=== PATIENT | male | born 1930 | race Caucasian/White ===

== ENCOUNTER 2018-04-26 18:06 | Inpatient (IN) | payer MEDICARE, OTHER ==
[~2018-04-26] VITALS: Ht 162.6 cm; Wt 69.1 kg
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
[2018-04-26] MEDS ORDERED: PRINIVIL20 MG PO (18:40)
[2018-04-26] MEDS ORDERED: BAYER CHEWABLE81 MG PO (18:40)
[2018-04-26] MEDS ORDERED: COLACE100 MG PO (18:40)
[2018-04-26] MEDS ORDERED: NORCO 7.5/325 T1 TA1 PO (18:41)
[2018-04-26] MEDS ORDERED: PLAVIX75 MG PO (18:41)
[2018-04-26] MEDS ORDERED: PROSCAR5 MG PO (18:41)
--- NOTE | 2018-04-26 18:53 | NUR ---
THIS NURSE CALLED PT LAURO LEIGH AND SPOKE WITH HER REGARDING CODEWORD. CODEWORD IS CARDINAL. ALL QUESTIONS AND CONCERNS ANSWERED AT THIS TIME. VISTING HOURS AND PHONE CALL TIMES DISCUSSED. NO FURTHER QUESTIONS OR CONCERNS AT THIS TIME.
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
[2018-04-26 23:55] VITALS: BP 156/93; BMI 26.1
[2018-04-27 06:39] LABS: BASOPHILS 0.8 % (0-2); EOSINOPHILS 1.1 % (0-7); HEMATOCRIT 33.2 % (42.0-54.0); HEMOGLOBIN 10.6 g/dL (13.5-17.5); IMMATURE GRANULOCYTES 0.4 % (0-5); LYMPHOCYTES 17.7 % (15-50); MCH 33.3 pg (26.0-34.0); MCHC 31.9 g/dL (31.0-37.0); MCV 104.4 fL (80.0-100.0); MEAN PLATELET VOLUME 12.5 fL (7.4-10.4); MONOCYTES 9.4 % (2-11); NEUTROPHILS 70.6 % (40-80); PLATELET COUNT 151 10x3/uL (130-400); RBC 3.18 10x6/uL (4.20-6.10); RDW 15.6 % (11.5-14.5); WBC 7.2 10x3/uL (4.8-10.8)
[2018-04-27 07:03] LABS: ALBUMIN 2.9 g/dL (3.4-5.0); ALKALINE PHOSPHATASE 109 U/L (46-116); ALT (SGPT) 21 U/L (10-68); BILIRUBIN - TOTAL 0.43 mg/dL (0.2-1.3); CALC OSMOLALITY 289 mosm/kg (275-300); CALCIUM 8.4 mg/dL (8.5-10.1); CARBON DIOXIDE 30.7 mmol/L (21.0-32.0); CHLORIDE - SERUM 108 mmol/L (98-107); CHOL - HDL RATIO 2.4 ratio (2.3-4.9); CHOLESTEROL, TOTAL 146 mg/dL (0-200); CREATININE - SERUM 0.8 mg/dL (0.6-1.3); HDL CHOLESTEROL 61 mg/dL (32-96); LDL CHOLESTEROL 80 mg/dL (0-100); LDL-HDL RATIO 1.3 ratio (1.5-3.5); POTASSIUM - SERUM 3.2 mmol/L (3.5-5.1); PROTEIN - SERUM 6.2 g/dL (6.4-8.2); SODIUM 145 mmol/L (136-145); THYROID STIMULATING HORMONE 2.12 uIU/mL (0.36-3.74); TRIGLYCERIDE 29 mg/dL (30-200); UREA NITROGEN 16 mg/dL (7-18); eGFR NON AFRICAN AMERICAN > 90 mL/min (90-120)
[2018-04-27 07:05] LABS: GLUCOSE 90 mg/dL (74-106)
[2018-04-27 08:00] VITALS: BP 121/62
[2018-04-27 13:15] VITALS: BMI 26.1
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
[2018-04-27 19:45] VITALS: BP 139/82
--- NOTE | 2018-04-27 22:39 | NUR ---
RECEIVED IN DAYROOM. SITTING IN A RECLINING CHAIR AT TABLE. STAFF AND PEERS AT HIS SIDE. CALM AND COOPERATIVE WITH CARE AND ASSESSMENT. NO SIGNS OF AGGRESSION. RESTING QUIETLY IN BED AT THIS TIME. CONTINUE PLAN OF CARE
[2018-04-28 07:30] LABS: RAPID PLASMA REAGIN Non Reactive (Non Reactive)
[2018-04-28 08:20] LABS: FOLATE (FOLIC ACID) - SERUM 9.6 ng/mL (>3.0); VITAMIN D 25 HYDROXY 15.9 ng/mL (30.0-100.0)
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
--- NOTE | 2018-04-28 10:00 | NUR ---
RECEIVED PATIENT IN DINING ROOM FOR B'FAST, ALERT, CALM, NO AGGRESSION NOTED AT THIS TIME. MEDS ADMIN PER ORDERS WITH COMPLETE MED COMPLIANCE NOTED. COOPERATIVE WITH GROUP AND STAFF REQUESTS. CONT POC INCLUDING MEDS AND GROUP THERAPY, MONITORING FOR AGGRESSION.
[2018-04-28 10:21] VITALS: BP 143/82
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
[2018-04-28 19:41] VITALS: BP 145/67
--- NOTE | 2018-04-28 21:42 | NUR ---
RECEIVED IN BEDROOM. RESTING IN BED WITH EYES CLOSED. RESPONDS TO VOICE. CALM AND COOPERATIVE WITH CARE AND ASSESSMENT. NO SIGNS OF AGGRESSION. REDIRECT AND REORIENT NEEDED, RESTING IN BED WITH EYES CLOSED AT THIS TIME. CONTINUE PLAN OF CARE
--- NOTE | 2018-04-29 10:28 | NUR ---
B)The patient is very confused he has no insight into where he is. He asks the same question over and over, he forgets one minite to the next. He has not shown any aggression this am, but he has asked about his shoes multiple times. He self propels in a w/c. I) Provide prescribed meds. R) The patient is compliant with meds today. He is talking a lot with another male patient and he is content. P) Continue POC.
--- NOTE | 2018-04-29 12:29 | PN ---
PATIENT:ELVIRA LEIGH MEDICAL RECORD: [id number] LOCATION:[facility] ADMISSION DATE: 04/26/18 PROGRESS NOTE DATE OF SERVICE: 04/28/2018 SUBJECTIVE: The patient's case was discussed with staff. He has no new complaint. OBJECTIVE: The patient is in good behavioral control with limited insight about his condition. He tolerates his medicines well. ASSESSMENT: No change in diagnoses. PLAN: Current medicines and therapies have been reviewed and will be maintained. Long-term prognosis is guarded. TRANSINT:[id number] Voice Confirmation ID: [id number] DOCUMENT ID: [id number] BERTHA CADENA MD at 1229 CC: [id number] DICTATION DATE: 04/28/18927 TECHNICAL APPLICATIONS SCIENTIST: 04/28/18 1142 ADM IN [place] [id number] [place] [address]
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
[2018-04-29 17:02] VITALS: BP 140/68
--- NOTE | 2018-04-29 17:57 | NUR ---
GOOD RESPONSE TO ATIVAN GIVEN EARLIER.
[2018-04-29 20:00] VITALS: BP 131/74
--- NOTE | 2018-04-30 01:54 | NUR ---
B) Patient is alert and oriented to self, calm and cooperative this shift, I) Administered scheduled mediations as ordered, monitored for safety R) Mediation compliant, sleeping now quietly in his bed, P) Continue plan of care.
[2018-04-30 04:42] LABS: APPEARANCE CLEAR (CLEAR); BILIRUBIN NEGATIVE (NEGATIVE); COLOR YELLOW (YELLOW); GLUCOSE NEGATIVE (NEGATIVE); KETONE NEGATIVE (NEGATIVE); NITRITE NEGATIVE (NEGATIVE); PROTEIN NEGATIVE (NEGATIVE); UROBILINOGEN NORMAL (NORMAL)
[2018-04-30 09:47] VITALS: BP 109/49
--- NOTE | 2018-04-30 12:55 | PN ---
PATIENT:ELVIRA LEIGH MEDICAL RECORD: [id number] LOCATION:[facility] ADMISSION DATE: 04/26/18 PROGRESS NOTE DATE OF SERVICE: 04/29/2018 SUBJECTIVE: The patient's case was discussed with staff. He has no new complaint. OBJECTIVE: The patient is tolerating his medicines reasonably well. He is receiving a dose of Namenda to assist with his thought disorganization. He has not been aggressive. ASSESSMENT: No change in diagnoses. PLAN: Current medicines and therapies have been reviewed and will be maintained. Long-term prognosis is guarded. TRANSINT:[id number] Voice Confirmation ID: [id number] DOCUMENT ID: [id number] BERTHA CADENA MD at 1255 CC: [id number] DICTATION DATE: 04/29/18 1254 MANAGEMENT SUPERVISOR: 04/29/18 1410 ADM IN [place] [id number] [place] [id number]
[2018-04-30 16:23] VITALS: Ht 162.6 cm; Wt 69.1 kg
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
--- NOTE | 2018-04-30 18:52 | NUR ---
The patient denies any pain in his knee now, he said "I forgot all about it."
--- NOTE | 2018-05-01 02:47 | NUR ---
B) Patient is alert and oriented to self, calm and cooperative this shift, confused, middle of the night awakening, I) Administered scheduled medications as ordered, PRN Gilead at 01:10 for back pain 8 of 10, R) Medication compliant, good responce to Gilead, no further complains of pain, resting in the hallway due to restlessness P) Continue plan of care.
--- NOTE | 2018-05-01 07:58 | NUR ---
B) The patient is awake this am he knows his name and he knows he is in the hospital. He says his knee hurts and he told Dr. Cooley he is hurting this am. He is sleepy at this time, he will talk a little then he will fall asleep. He is in a gerichair. I) Provide prescribed meds. R) The patient is compliant with meds and unit milieu. P) Continue POC.
--- NOTE | 2018-05-01 08:46 | PN ---
PATIENT:ELVIRA LEIGH MEDICAL RECORD: [id number] LOCATION:[facility] ADMISSION DATE: 04/26/18 PROGRESS NOTE DATE OF SERVICE: 04/30/2018 SUBJECTIVE: The patient's case was discussed with staff. He has no new complaint. OBJECTIVE: The patient is in good behavioral control with limited insight about his condition. He does tolerate his medicines well. He is difficult to redirect, but has not been openly aggressive or agitated today. TRANSINT:[id number] Voice Confirmation ID: [id number] DOCUMENT ID: [id number] BERTHA CADENA MD at 0846 CC: [id number] DICTATION DATE: 04/30/18 1327 CERTIFIED CODER: 04/30/18 1724 ADM IN [place] [id number] [place] [id number]
[2018-05-01 09:51] VITALS: BP 111/66
[2018-05-01 10:10] VITALS: BP 111/66
--- NOTE | 2018-05-01 15:56 | NUR ---
FAMILY HERE TO VISIT PATIENT.
[2018-05-01 19:00] VITALS: BP 150/76
--- NOTE | 2018-05-02 04:03 | NUR ---
B) patient is alert and oriented to self, very confused and yelling out for Gertrudis, I) Administered scheduled medications as ordered, redirected as needed, R) Mediation compliant, sleeping now in his bed, P) Continue plan of care.
[2018-05-02 07:00] VITALS: BP 135/70
--- NOTE | 2018-05-02 08:00 | NUR ---
B) pt is alert and oriented to self. pt is very confused. pt yells out at times. pt is calm and cooperative with assessment. I) provide prescribed meds R) med compliant P) cpoc
--- NOTE | 2018-05-02 11:30 | PN ---
PATIENT:ELVIRA LEIGH MEDICAL RECORD: [id number] LOCATION:[facility] ADMISSION DATE: 04/26/18 PROGRESS NOTE DATE OF SERVICE: 05/01/2018 SUBJECTIVE: The patient's case was discussed with staff. He has no new complaint. OBJECTIVE: The patient denies intent to harm himself or others. He eats reasonably well, but is not sleeping well at all. ASSESSMENT: No change in diagnoses. PLAN: The patient will be maintained on current medications, which have been reviewed. I am going to give him a low dose of trazodone to assist with sleep consolidation. He will be monitored for clinical changes associated with its use. His long-term prognosis is guarded. TRANSINT:[id number] Voice Confirmation ID: [id number] DOCUMENT ID: [id number] BERTHA CADENA MD at 1130 CC: [id number] DICTATION DATE: 05/01/18 1011 RETAIL LOSS PREVENTION INVESTIGATOR: 05/01/18 1211 ADM IN [place] [id number] [place] [id number]
[2018-05-02 20:12] VITALS: BP 120/76
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
[2018-05-03 07:00] VITALS: BP 124/67
--- NOTE | 2018-05-03 07:30 | NUR ---
B) PT IS ALERT AND ORIENTED TO SELF. CALM AND COOPERATIVE WITH ASSESSMENT. REALITY ORIENTED NEEDED. I) PROVIDE PRESCRIBED MEDS R) MED COMPLIANT P) CPOC
[2018-05-03 08:52] LABS: BASOPHILS 0.8 % (0-2); EOSINOPHILS 1.7 % (0-7); HEMATOCRIT 36.6 % (42.0-54.0); HEMOGLOBIN 11.6 g/dL (13.5-17.5); IMMATURE GRANULOCYTES 0.6 % (0-5); LYMPHOCYTES 19.3 % (15-50); MCH 32.9 pg (26.0-34.0); MCHC 31.7 g/dL (31.0-37.0); MCV 103.7 fL (80.0-100.0); MEAN PLATELET VOLUME 12.6 fL (7.4-10.4); MONOCYTES 12.5 % (2-11); NEUTROPHILS 65.1 % (40-80); PLATELET COUNT 143 10x3/uL (130-400); RBC 3.53 10x6/uL (4.20-6.10); RDW 15.6 % (11.5-14.5); WBC 6.6 10x3/uL (4.8-10.8)
[2018-05-03 09:10] LABS: ALBUMIN 2.9 g/dL (3.4-5.0); ALKALINE PHOSPHATASE 106 U/L (46-116); ALT (SGPT) 11 U/L (10-68); BILIRUBIN - TOTAL 0.58 mg/dL (0.2-1.3); CALC OSMOLALITY 284 mosm/kg (275-300); CALCIUM 8.6 mg/dL (8.5-10.1); CARBON DIOXIDE 24.8 mmol/L (21.0-32.0); CHLORIDE - SERUM 107 mmol/L (98-107); CREATININE - SERUM 0.8 mg/dL (0.6-1.3); GLUCOSE 100 mg/dL (74-106); POTASSIUM - SERUM 3.8 mmol/L (3.5-5.1); SODIUM 142 mmol/L (136-145); UREA NITROGEN 18 mg/dL (7-18); eGFR NON AFRICAN AMERICAN > 90 mL/min (90-120)
--- NOTE | 2018-05-03 09:41 | PN ---
PATIENT:ELVIRA LEIGH MEDICAL RECORD: [id number] LOCATION:[facility] ADMISSION DATE: 04/26/18 PROGRESS NOTE DATE OF SERVICE: 05/02/2018 SUBJECTIVE: The patient's case was discussed with staff. He has no new complaint. OBJECTIVE: The patient denies intent to harm himself or others. He has been fairly agitated. ASSESSMENT: No change in diagnoses. PLAN: The patient is going to be given Trilafon at a dose of 2 mg at bedtime to assist with thought disorganization. He will be monitored for clinical changes associated with its use. TRANSINT:[id number] Voice Confirmation ID: [id number] DOCUMENT ID: [id number] BERTHA CADENA MD at 0941 CC: [id number] DICTATION DATE: 05/02/18 1142 REAL ESTATE VALUER: 05/02/18 1541 ADM IN [place] [id number] [place] [id number]
--- NOTE | 2018-05-03 13:10 | NUR ---
Nutrition follow-up: Diet: Regular PO intake 100% of meals Labs reviewed +BM RDN following.
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
--- NOTE | 2018-05-03 14:05 | NUR ---
PRN MED EFFECTIVE. PT RESTING IN RECLING CHAIR IN DAYROOM WITH PEERS AND NURSES. WILL CONTINUE TO MONITOR Q 15 MINUTES FOR SAFETY.
--- NOTE | 2018-05-03 21:22 | NUR ---
PATIENT IS CONFUSED TO TIME, PLACE AND SITUATION, COMPLIANT WITH MEDS, NO ADVERSE REACTION NTOED. WILL FOLLOW POC
[2018-05-03 21:59] VITALS: BP 120/60
[2018-05-04 08:00] VITALS: BP 137/88
--- NOTE | 2018-05-04 09:43 | PN ---
PATIENT:ELVIRA LEIGH MEDICAL RECORD: [id number] LOCATION:[facility] ADMISSION DATE: 04/26/18 PROGRESS NOTE DATE OF SERVICE: 05/03/2018 SUBJECTIVE: The patient's case was discussed with staff. He has no new complaint. OBJECTIVE: The patient denies intent to harm himself or others. He tolerates his medicines well. ASSESSMENT: No change in diagnoses. PLAN: Brief supportive and educational interventions were made. Long-term prognosis is guarded. TRANSINT:[id number] Voice Confirmation ID: [id number] DOCUMENT ID: [id number] BERTHA CADENA MD at 0943 CC: [id number] DICTATION DATE: 05/03/18 1036 WAIST CUTTER: 05/03/18 1104 ADM IN [place] [id number] [place] [id number]
--- NOTE | 2018-05-04 10:00 | NUR ---
RECEIVED PATIENT IN DINING ROOM FOR B'FAST, ALERT, CALM, COOPERATIVE. NO AGGRESSION NOTED AT THIS TIME. MEDS ADMIN PER ORDERS WITH COMPLETE MED COMPLIANCE NOTED. NO S/S ADVERSE REACTION TO MEDS. COOPERATIVE WITH STAFF AND GROUP THERAPY. CONT POC DIRECTED.
[2018-05-04 21:00] VITALS: BP 140/82
--- NOTE | 2018-05-04 22:56 | NUR ---
B) patient is alert and oriented to self, yelling out ant and demanding at times, I) Administered scheduled medications as ordered, R) Mediation compliant, resting in the hallway for safety P) Continue plan of care.
[2018-05-05 08:00] VITALS: BP 153/77
--- NOTE | 2018-05-05 10:37 | NUR ---
RECEIVED PATIENT IN DINING ROOM FOR B'FAST, ALERT, CALM, COOPERATIVE. NO AGGRESSION NOTED. HOWEVER, WILL OCCASIONALLY CURSE LOUDLY FOR UNKOWN REASONS. MEDS ADMIN PER ORDERS WITH COMPLETE MED COMPLIANCE NOTED. TAKES MEDS WHOLE. COOPERATIVE WITH GROUP AND STAFF REQUESTS. CONT POC INCLUDING MEDS AND GROUP THERAPY DIRECTED.
--- NOTE | 2018-05-05 10:40 | NUR ---
ELECTRONIC PREPRESS OPERATOR HERE FOR TOENAIL MAINTENANCE. PT COOPERATIVE AND TIMMY PROCEDURE WELL.
--- NOTE | 2018-05-05 10:53 | NUR ---
LIV SPOKE TO PT'S , LAURO, TO DISCUSS DISCHARGE PLANNING NEEDS. LIV STATED SHE FAXED LETTERS TO PT'S CHART COMPUTER. LAURO VOICED UNDERSTANDING
--- NOTE | 2018-05-05 15:07 | PN ---
PATIENT:ELVIRA LEIGH MEDICAL RECORD: [id number] LOCATION:[facility] ADMISSION DATE: 04/26/18 PROGRESS NOTE DATE OF SERVICE: 05/04/2018 SUBJECTIVE: The patient's case was discussed with staff. He has no new complaint. OBJECTIVE: The patient is irritable, but he has not been openly aggressive today. He did require Haldol and Ativan yesterday afternoon. He is not sedated from that incident. He will be maintained on current medicines. TRANSINT:[id number] Voice Confirmation ID: [id number] DOCUMENT ID: [id number] BERTHA CADENA MD at 1507 CC: [id number] DICTATION DATE: 05/04/18 1003 PRODUCTION TECHNOLOGIST: 05/04/18 1018 ADM IN [id number] [place] [address]
[2018-05-05 20:23] VITALS: BP 129/69
--- NOTE | 2018-05-06 02:51 | NUR ---
B) Patient is alert and oriented to self, confused and unaware of surroundings at times, I) Administered scheduled medications as ordered, monitored for safety R) Medication compliant, follow instructions, P) Continue plan of care.
--- NOTE | 2018-05-06 10:00 | NUR ---
RECEIVED PATIENT IN DINING ROOM FOR B'FAST, ALERT, CALM, CONFUSED, FEEDS SELF AFTER SETUP. CALM MOST OF THE TIME WITH AN OCCASIONAL OUTBURST OF PROFANITY. MEDS ADMIN PER ORDERS WITH COMPLETE MED COMPLIANCE NOTED. NO S/S ADVERSE REACTION TO MEDS. COOPERATIVE WITH GROUP AND STAFF REQUESTS. CONT POC INCLUDING MEDS AND GROUP THERAPY DIRECTED.
[2018-05-06 10:19] VITALS: BP 148/75
--- NOTE | 2018-05-06 14:21 | PN ---
PATIENT:ELVIRA LEIGH MEDICAL RECORD: [id number] LOCATION:[facility] ADMISSION DATE: 04/26/18 PROGRESS NOTE DATE OF SERVICE: 05/05/2018 SUBJECTIVE: The patient's case was discussed with staff. He has no new complaint. OBJECTIVE: The patient is severely impaired cognitively, but has not been aggressive today. He has very limited insight about his situation. ASSESSMENT: No change in diagnoses. PLAN: Supportive and educational interventions were made. Long-term prognosis is guarded. TRANSINT:[id number] Voice Confirmation ID: [id number] DOCUMENT ID: [id number] BERTHA CADENA MD at 1421 CC: [id number] DICTATION DATE: 05/05/18 1542 ASSEMBLER CARDS AND ANNOUNCEMENTS: 05/05/18 1658 ADM IN [place] [address] [place] [address]
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
--- NOTE | 2018-05-06 15:23 | NUR ---
RESTING QUIETLY IN W/C, EYES CLOSED. NO S/S DISTRESS.
--- NOTE | 2018-05-06 15:38 | NUR ---
FAMILY HERE TO VISIT PATIENT.
--- NOTE | 2018-05-06 16:14 | NUR ---
LIV MET WITH PT'S , LAURO, TO DISCUSS DISCHARGE AND DISEASE PROGRESSION. LIV GAVE MD LETTERS TO HAVE FOR HER GUARDIANSHIP PURPOSES. SHE STATED SHE IS NOW HIS LEGAL GUARDIAN. LAURO VOICED UNDERSTANDING OF CONVERSATION.
[2018-05-06 20:05] VITALS: BP 135/72
--- NOTE | 2018-05-06 21:06 | NUR ---
RECEIVED IN DAYROOM. SITTING IN A CHAIR WITH PEERS BY HIS SIDE. CALM AND COOPERATIVE WITH CARE AND ASSESSMENT. NO SIGNS OF AGGRESSION. REDIRECT AND REORIENT NEEDED. CONTINUES TO SIT QUIETLY IN CHAIR. CONTINUE PLAN OF CARE
[2018-05-07 08:46] VITALS: BP 148/49
--- NOTE | 2018-05-07 10:55 | NUR ---
B) The patient is sleepy this am, he has asked to go to the bathroom and he has been taken twice and has not voided. He has poor insight into his situation, he is confused and he yells out for Gertrudis and Parvin. I) Provide prescribed meds. R) The patient is compliant with meds. P) Continue POC.
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
[2018-05-07 19:46] VITALS: BP 145/67
--- NOTE | 2018-05-08 00:30 | NUR ---
RECEIVED IN HALLWAY OUTSIDE OF NURSES STATION. SOCIALIZING WITH PEERS AND STAFF. CALM AND COOPERATIVE WITH CARE AND ASSESSMENT. NO SIGNS OF AGGRESSION. REDRIECT AND REORIENT NEEDED. RESTING IN BED WITH EYES CLOSED AT THIS TIME. CONTINUE PLAN OF CARE.
[2018-05-08 08:00] VITALS: BP 121/77
--- NOTE | 2018-05-08 13:46 | PN ---
PATIENT:ELVIRA LEIGH MEDICAL RECORD: [id number] LOCATION:[facility]qbal[facility] ADMISSION DATE: 04/26/18 PROGRESS NOTE DATE OF SERVICE: 05/07/2018 SUBJECTIVE: The patient's case was discussed with staff. He has no new complaint. OBJECTIVE: The patient is taking a higher dose of Trilafon for its antipsychotic effect. He did receive a p.r.n. dose of medication yesterday because of some agitation and aggression. He was fairly sedated through the morning, but that was probably the lingering side effect of the medication. ASSESSMENT: No change in diagnoses. PLAN: Current medicines have been reviewed and will be maintained. I am going to increase the dose of the trazodone to assist with sleep consolidation. TRANSINT:[id number] Voice Confirmation ID: [id number] DOCUMENT ID: [id number] BERTHA CADENA MD at 1346 CC: [id number] DICTATION DATE: 05/07/18 1552 ACID PATROLLER: 05/07/18 2342 ADM IN [place] [id number] [place] [address]
--- NOTE | 2018-05-08 15:21 | NUR ---
B) The patient is confused, he is wheeling around, saying he needs to leave because he wants to go build a house with the gloria. He has poor insight into his situation. He is in a w/c and can self propel. He has not shown any aggression today. His legs are edematous and he will not elevate his feet. He also keeps asking about his shoes, try to explain that his feet are too edematous for shoes. I) Provide prescribed meds. R) The patient is compliant with meds. He did tell me this am that he did not want to take all of those meds. He did take them, a couple at a time. P) Continue POC.
[2018-05-08 21:16] VITALS: BP 138/70
--- NOTE | 2018-05-09 00:45 | NUR ---
RECEIVED IN HALLWAY OUTSIDE OF NURSES STATION IN [facility]. PATIENT CONTINUOUSLY ATTEMPTING TO GET UP WITHOUT ASSISTANCE. ALARM SOUNDING. ANXIOUS. YELLING OUT IN HALLWAY. WAKING OTHER PATIENTS UP. RESISTIVE TO REDIRECTION. REDIRECT AND REORIENT. PRN ATIVAN 0.5 MG GIVEN FOR ANXIETY. PATIENT RESTING WITH EYES CLOSED AT THIS TIME. CONTINUE PLAN OF CARE.
[2018-05-09 08:00] VITALS: BP 148/85
--- NOTE | 2018-05-09 11:13 | PN ---
PATIENT:ELVIRA LEIGH MEDICAL RECORD: [id number] LOCATION:[facility] ADMISSION DATE: 04/26/18 PROGRESS NOTE DATE OF SERVICE: 05/08/2018 SUBJECTIVE: The patient's case was discussed with staff. He has no new complaint. OBJECTIVE: The patient denies intent to harm himself or others. He tolerates his medicines well. Eye contact is poor. ASSESSMENT: No change in diagnoses. PLAN: Current medicines and therapies have been reviewed and will be maintained. Long-term prognosis is guarded. TRANSINT:[id number] Voice Confirmation ID: [id number] DOCUMENT ID: [id number] BERTHA CADENA MD at 1113 CC: [id number] DICTATION DATE: 05/08/18 1510 IN SCHOOL SUSPENSION COORDINATOR: 05/08/18 2141 ADM IN [facility] [address] [place] [address]
--- NOTE | 2018-05-09 11:14 | NUR ---
B) PT IS CONFUSED WITH POOR INSIGHT INTO HIS SITUATION. REALITY ORIENTED NEEDED. I) PROVIDED PRESCRIBED MEDS R) NONCOMPLIANT WITH MEDS P) CPOC
--- NOTE | 2018-05-09 20:38 | NUR ---
RECEIVED IN BEDROOM. RESTING IN BED WITH EYES CLOSED. CALM AND COOPERATIVE WITH CARE AND ASSESSMENT. NO SIGNS OF AGGRESSION. REDIRECT AND REORIENT NEEDED. CONTINUE TO REST QUIETLY IN BED. CONTINUE PLAN OF CARE
[2018-05-09 22:06] VITALS: BP 120/56
--- NOTE | 2018-05-10 10:30 | NUR ---
RECEIVED PATIENT IN DINING ROOM FOR B'FAST, ALERT, CALM, QUIET. MEDS ADMIN PER ORDERS WITH COMPLETE MED COMPLIANCE NOTED. NO S/S ADVERSE REACITON. COOPERATIVE WITH GROUP AND STAFF. CONT POC INCLUDING MEDS AND GROUP THERAPY.
[2018-05-10 10:36] VITALS: BP 137/78
--- NOTE | 2018-05-10 13:23 | PN ---
PATIENT:ELVIRA LEIGH MEDICAL RECORD: [id number] LOCATION:[facility] ADMISSION DATE: 04/26/18 PROGRESS NOTE DATE OF SERVICE: 05/09/2018 SUBJECTIVE: The patient's case was discussed with staff. He has no new complaint. OBJECTIVE: The patient is in good behavioral control with poor insight about his condition. He has not been combative today; but earlier, he was noncompliant with medications and did curse the staff. TRANSINT:[id number] Voice Confirmation ID: [id number] DOCUMENT ID: [id number] BERTHA CADENA MD at 1323 CC: [id number] DICTATION DATE: 05/09/18 1122 COMMUNITY ORGANIZER: 05/09/18 1533 ADM IN [place] [id number] [place] [address]
--- NOTE | 2018-05-10 15:06 | NUR ---
Nutrition Follow Up: Diet: Regular PO Intake: 69% meal avg BM: 05/09/18 Meds and labs reviewed Rec continue current diet. RD following.
[2018-05-10 20:40] VITALS: BP 136/76
--- NOTE | 2018-05-11 05:12 | NUR ---
B) patient is alert and oriented to self, restless at times, impatient at times, I) Administered scheduled medications as ordered, monitored for safety R) Mediation compliant, sleeping now quietly in his bed, P) Continue plan of care.
--- NOTE | 2018-05-11 09:32 | NUR ---
RECEIVED PATIENT IN DINING ROOM FOR B'FAST, ALERT, CALM, COOPERATIVE, CONFUSED. MEDS ADMIN PER ORDERS WITH COMPLETE MED COMPLIANCE NOTED. COOPERATIVE WITH GROUP AND STAFF REQUESTS. CONT POC INCLUDING MEDS AND GROUP THERAPY DIRECTED.
--- NOTE | 2018-05-11 10:58 | PN ---
PATIENT:ELVIRA LEIGH MEDICAL RECORD: [id number] LOCATION:[facility] ADMISSION DATE: 04/26/18 PROGRESS NOTE DATE OF SERVICE: 05/10/2018 SUBJECTIVE: The patient's case was discussed with staff. He has no new complaint. OBJECTIVE: The patient is in good behavioral control with limited insight about his condition. He does tolerate his medicines well. ASSESSMENT: No change in diagnoses. PLAN: Supportive and educational interventions were made. Long-term prognosis is guarded. TRANSINT:[id number] Voice Confirmation ID: [id number] DOCUMENT ID: [id number] BERTHA CADENA MD at 1058 CC: [id number] DICTATION DATE: 05/10/18 1417 RESEARCH INSTRUCTOR: 05/10/18 2208 ADM IN [place] [id number] [place] [id number]
[2018-05-11 11:27] VITALS: BP 149/71
[2018-05-11 19:48] VITALS: BP 125/63
--- NOTE | 2018-05-12 02:20 | NUR ---
RECEIVED IN PATIENT ROOM. RESTING IN BED WITH EYS OPEN. CALM AND COOPERATIVE WITH CARE AND ASSESSMENT. NO SIGNS OF AGGRESSION. REDIRECT AND REORIENT NEEDED. RESTING IN BED WITH EYES CLOSED AT THIS TIME. CONTINUE PLAN OF CARE.
[2018-05-12 08:00] VITALS: BP 126/70
--- NOTE | 2018-05-12 08:00 | NUR ---
B) RECIVED IN HALLWAY IN RECLINER. ALERT TO SELF ONLY. CALM AND COOPERATIVE WITH CARE AND ASSESSMENT. I) ADMINISTERED MEDICATIONS ORDERED. FALL PRECAUTIONS IN PLACE. R) COMPLIANT WITH TAKING MEDICATIONS. REDIRECT NEEDED. P) CONTINUE PLAN OF CARE.
--- NOTE | 2018-05-12 17:30 | PN ---
PATIENT:ELVIRA LEIGH MEDICAL RECORD: [id number] LOCATION:[facility] ADMISSION DATE: 04/26/18 PROGRESS NOTE DATE OF SERVICE: 05/11/2018 SUBJECTIVE: The patient's case was discussed with staff. He has no new complaint. OBJECTIVE: The patient is in good behavioral control. He is severely impaired cognitively. He is not eating adequately. I do plan to give him a low dose of Megace to assist with appetite stimulation. TRANSINT:[id number] Voice Confirmation ID: [id number] DOCUMENT ID: [id number] BERTHA CADENA MD at 1730 CC: [id number] DICTATION DATE: 05/11/18 1242 TELECOMMUNICATIONS FIELD ENGINEER: 05/11/18 2209 ADM IN [place] [address] [place] [address]
[2018-05-12 21:09] VITALS: BP 127/66
--- NOTE | 2018-05-12 21:14 | NUR ---
RECEIVED IN DAYROOM. SITTING IN ACHAIR WITH PEERS AT HIS SIDE. CALM AND COOPERATIVE WITH CARE AND ASSESSMENT. NO SIGNS OF AGGRESSION. REDIRECT AND REORIENT NEEDED. CONTINUES TO SIT QUIETLY. CONTINUE PLAN OF CARE
--- NOTE | 2018-05-12 23:54 | NUR ---
GETTING OUT OF BED. STATES "I WON'T SLEEP IN THIS BED". MOVED TO HALLWAY INTO RECLINER AFTER AttEMPTS AT REDIRECTION FAILED. RESTING EYES CLOSED AT THIS TIME.
[2018-05-13 09:04] VITALS: BP 119/68
--- NOTE | 2018-05-13 10:20 | NUR ---
B) RECEIVED IN HALLWAY WITH PEERS,SITTING IN A RECLINER. ALERT AND ORIENTED TO SELF ONLY. NO AGGRESSION NOTED. I) ADMINISTERED SCHEDULED MEDICATIONS. FALL PRECAUTIONS IN PLACE. R) COMPLIANT WITH MEDICATIONS AND UNIT MILIEU. REDIRECT AND REORIENT NEEDED. P) CONTINUE PLAN OF CARE.
--- NOTE | 2018-05-13 15:00 | PN ---
PATIENT:ELVIRA LEIGH MEDICAL RECORD: [id number] LOCATION:[facility] ADMISSION DATE: 04/26/18 PROGRESS NOTE DATE OF SERVICE: 05/12/2018 SUBJECTIVE: The patient's case was discussed with staff. He has no new complaint. OBJECTIVE: The patient has been in good behavioral control today. He has not been aggressive. He actually slept well last night and I am encouraged by the improvement that he has shown in the past couple of days. I have reviewed his current medicines and I am going to maintain them today, but want to continue to watch him for aggressive behaviors and also to ensure that the medications he is receiving are not going to cause some excessive sedation. ASSESSMENT: No change in diagnoses. PLAN: Supportive and educational interventions were made. Long-term prognosis is guarded. TRANSINT:[id number] Voice Confirmation ID: [id number] DOCUMENT ID: [id number] BERTHA CADENA MD at 1500 CC: [id number] DICTATION DATE: 05/12/18 175 AUTOMATIC NAILING MACHINE OPERATOR: 05/12/18 1851 ADM IN [facility] [address] [place] [id number]
[2018-05-13 19:34] VITALS: BP 140/65
--- NOTE | 2018-05-14 01:00 | NUR ---
RECEIVED IN DAYROOM. SITTING IN RECLINER WITH PEERS AT HIS SIDE. CALM AND COOPERATIVE WITH CARE AND ASSESSMENT. NO SIGNS OF AGGRESSION. REDIRECT AND REORIENT NEEDED. RESTING IN BED WITH EYES CLOSED AT THIS TIME. CONTINUE PLAN OF CARE.
[2018-05-14 08:14] VITALS: BP 146/77
--- NOTE | 2018-05-14 13:29 | NUR ---
B) The patient is awake, he has poor insight into his situation. He is pleasant he has not shown any aggression with staff or peers. He has 2+ edema in his right foot and ankle. I) Provide prescribed meds. R) Patient is compliant with meds and unit. P) Continue POC.
[2018-05-14 20:00] VITALS: BP 162/87
--- NOTE | 2018-05-14 23:07 | NUR ---
PATIENT IS IN GERICHAIR, FLAT AFFECT. NO ADVERSE REACTIONS TO MEDS. COMPLIANT WITH MEDS. IMPAIRED MEMORY. WILL CONTINUE TO FOLLOW POC
--- NOTE | 2018-05-15 08:00 | NUR ---
On am assesment it is noted that the patient's left hand particularly the thumb is swollen and the patient c/o pain. When this nurse touches the thumb area the marybeth and parveen, Did ask Dr. Cooley for an Xray. An xray is ordered.
--- NOTE | 2018-05-15 08:30 | NUR ---
Xray obtained of the left hand.
--- NOTE | 2018-05-15 09:10 | NUR ---
B) The patient is confused he has poor insight into his situation. He knows his name. He does not know where he is and he does not know the time. He is calm and he has not shown any aggression today. He does try to get up and walk often. I) Provide prescribed meds. R) The patient is compliant with meds. P) Continue POC.
--- NOTE | 2018-05-15 10:19 | NUR ---
The x-ray report shows no fx of the left hand.
--- NOTE | 2018-05-15 10:45 | NUR ---
The patient fell, Matt ALLEN had taken him to the bathroom and he heard another patient's alarm and the patient stood up alone. He fell. Matt did an assessment with no injuries noted.
--- NOTE | 2018-05-15 11:00 | NUR ---
Contacted Dr. Cooley and left messages for the patient's spouse to let her know the patient fell, no injuries, also let her know about the patient's swollen left hand and xray that we did prior to the fall this am.
--- NOTE | 2018-05-15 12:34 | PN ---
PATIENT:ELVIRA LEIGH MEDICAL RECORD: [id number] LOCATION:[facility] ADMISSION DATE: 04/26/18 PROGRESS NOTE DATE OF SERVICE: 05/13/2018 SUBJECTIVE: The patient's case was discussed with staff. He has no new complaints. OBJECTIVE: The patient is in good behavioral control with limited insight about his condition. He tolerates his medicines well. ASSESSMENT: No change in diagnoses. PLAN: The patient will be maintained on current medications. He is eating better now that he has been given the Megace. The trazodone does not seem to have helped with his sleep consolidation, but I am going to give that another day before I consider changing it. I am, however, going to increase the dose of the Namenda to 5 mg twice daily. He has tolerated the initial dose well and I think it is reasonable to increase it at this point. TRANSINT:[id number] Voice Confirmation ID: [id number] DOCUMENT ID: [id number] BERTHA CADENA MD at 1234 CC: [id number] DICTATION DATE: 05/13/18 1534 DIE EQUIPMENT OPERATOR: 05/13/18 2207 ADM IN [facility] [address] [place] [address]
--- NOTE | 2018-05-15 12:34 | PN ---
PATIENT:ELVIRA LEIGH MEDICAL RECORD: [id number] LOCATION:[facility] ADMISSION DATE: 04/26/18 PROGRESS NOTE DATE OF SERVICE: 05/14/2018 SUBJECTIVE: The patient's case was discussed with staff. He has no new complaint. OBJECTIVE: The patient denies intent to harm himself or others. He is tolerating his medicines well. He is very poorly oriented. ASSESSMENT: No change in diagnoses. PLAN: Supportive and educational interventions were made. Long-term prognosis is guarded. TRANSINT:[id number] Voice Confirmation ID: [id number] DOCUMENT ID: [id number] BERTHA CADENA MD at 1234 CC: [id number] DICTATION DATE: 05/14/18 1506 AIRCRAFT LAUNCH AND RECOVERY TECHNICIAN: 05/14/18 2134 ADM IN [place] [id number] [place] [address]
[2018-05-15 21:10] VITALS: BP 136/74
--- NOTE | 2018-05-16 00:04 | NUR ---
PATIENT IS CONFUSED AND ORIENTED TO SELF ONLY. NO ADVERSE REACTION NOTED. WILL FOLLOW POC.
[2018-05-16 07:00] VITALS: BP 146/70
--- NOTE | 2018-05-16 10:00 | PN ---
PATIENT:ELVIRA LEIGH MEDICAL RECORD: [id number] LOCATION:[facility] ADMISSION DATE: 04/26/18 PROGRESS NOTE DATE OF SERVICE: 05/15/2018 SUBJECTIVE: The patient's case was discussed with staff. He has no new complaint. OBJECTIVE: The patient denies intent to harm himself or others. He tolerates his medicines well. He is confused, but has not been aggressive today. ASSESSMENT: No change in diagnoses. PLAN: Current medicines and therapies have been reviewed and will be maintained. TRANSINT:[id number] Voice Confirmation ID: [id number] DOCUMENT ID: [id number] BERTHA CADENA MD at 1000 CC: [id number] DICTATION DATE: 05/15/18 1241 REPAIR MECHANIC: 05/15/18 1421 ADM IN [place] [address] [place] [address]
--- NOTE | 2018-05-16 13:45 | NUR ---
RECEIVED PATIENT IN DINING ROOM FOR B'FAST, ALERT, CALM, COOPERATIVE, CONFUSED. NO AGGRESSION NOTED. MEDS ADMIN PER ORDERS WITH COMPLETE MED COMPLIANCE NOTED. COOPERATIVE WITH GROUP AND STAFF. CONT POC INCLUDING MEDS AND GROUP THERAPY DIRECTED.
--- NOTE | 2018-05-16 17:20 | NUR ---
SPOUSE CAME TO VISIT AT THIS TIME, BUT IT WAS AFTER VISITING HOURS. EDUCATED ON VISITATION HOURS PER STAFF.
--- NOTE | 2018-05-16 21:58 | NUR ---
RECEIVED IN BED ROOM. RESTING IN BED WITH EYES CLOSED. RESPONDS TO VOICE. CALM AND COOPERATIVE WITH CARE AND ASSESSMENT. NO SIGNS OF AGGRESSION. REDIRECT AND REORIENT NEEDED. RESTING IN BED WITH EYES CLOSED AT THIS TIME. CONTINUE PLAN OF CARE
[2018-05-16 22:33] VITALS: BP 152/60
--- NOTE | 2018-05-17 07:30 | NUR ---
REC'D PT IN HALLWAY WITH PEERS. PT IS CONFUSED AND HAS POOR INSIGHT INTO HIS SITUATION. CALM AND COOPERATIVE WITH ASSESSMENT. NO AGGRESSION NOTED. PT CALM AND COOPERATIVE WITH ASSESSMENT. REDIRECT AND REORIENT NEEDED. FALL PRECAUTIONS IN PLACE. WILL CONTINUE TO MONITOR Q 15 MINUTES FOR SAFETY. WILL CPOC.
[2018-05-17 08:10] VITALS: BP 134/74
--- NOTE | 2018-05-17 13:56 | PN ---
PATIENT:ELVIRA LEIGH MEDICAL RECORD: [id number] LOCATION:[facility] ADMISSION DATE: 04/26/18 PROGRESS NOTE DATE OF SERVICE: 05/16/2018 SUBJECTIVE: The patient's case was discussed with staff. He has no new complaint. OBJECTIVE: The patient is in good behavioral control. He has poor insight about his condition. He tolerates his medicines well. ASSESSMENT: No change in diagnoses. PLAN: Brief supportive and educational interventions were made. Long-term prognosis is guarded. TRANSINT:[id number] Voice Confirmation ID: [id number] DOCUMENT ID: [id number] BERTHA CADENA MD at 1356 CC: [id number] DICTATION DATE: 05/16/18 1015 QUALITY SPECIALIST: 05/16/18 1029 ADM IN [address] [address]
[2018-05-17 17:11] LABS: EOSINOPHILS 0.8 % (0-7); HEMOGLOBIN 11.4 g/dL (13.5-17.5); IMMATURE GRANULOCYTES 0.3 % (0-5); LYMPHOCYTES 19.3 % (15-50); MCH 32.6 pg (26.0-34.0); MCHC 32.6 g/dL (31.0-37.0); MEAN PLATELET VOLUME 12.6 fL (7.4-10.4); MONOCYTES 11.5 % (2-11); NEUTROPHILS 67.1 % (40-80); RDW 15.4 % (11.5-14.5); WBC 7.3 10x3/uL (4.8-10.8)
[2018-05-17 17:12] LABS: PLATELET COUNT 178 10x3/uL (130-400)
[2018-05-17 18:11] LABS: ERYTHROCYTE SEDIMENTATION RATE 25 mm/hr (0-30)
--- NOTE | 2018-05-17 19:50 | NUR ---
AGGRESSIVE WITH STAFF. INCREASING ANXIETY. UNABLE TO REDIRECT. PRN ATIVAN 0.5 MG IM GIVEN FOR ANXIETY.
--- NOTE | 2018-05-18 00:01 | NUR ---
RESTING IN BED WITH EYES CLOSED. HAS ATTEMTED TO EXIT BED AT TIMES WITHOUT ASSIST WITH BED ALARM SOUNDING.
--- NOTE | 2018-05-18 07:30 | NUR ---
REC'D PT IN HALLWAY IN RECLINING CHAIR AWAKE WITH PEERS. ALERT TO SELF ONLY. PT IS CALM AND COOPERATIVE WITH ASSESSMENT. REDIRECT AND REORIENT NEEDED. PRESCRIBED MEDS PROVIDED NEEDED. MED COMPLIANT. FALLL PRECAUTIONS IN PLACE. WILL CONTINUE TO MONITOR Q 15 MINUTES FOR SAFETY. WILL CPOC.
[2018-05-18 09:14] VITALS: BP 138/77
--- NOTE | 2018-05-18 10:44 | NUR ---
Nutrition Follow Up: Chart reviewed Diet: Regular [facility] Soft PO Intake: 89% meal avg BM: 05/16/18 Labs reviewed Meds noted including Lasix, Megace Rec continue regular diet with WOOD FINISHER APPRENTICE recs for consistencies. RD following.
--- NOTE | 2018-05-18 15:13 | PN ---
PATIENT:ELVIRA LEIGH MEDICAL RECORD: [id number] LOCATION:[facility] ADMISSION DATE: 04/26/18 PROGRESS NOTE DATE OF SERVICE: 05/17/2018 SUBJECTIVE: The patient's case was discussed with staff. He has no new complaint. OBJECTIVE: The patient is in good behavioral control with limited insight about his condition. He has not been aggressive today. ASSESSMENT: No change in diagnoses. PLAN: If this level of improvement continues, I anticipate he can be transitioned out of the hospital soon. TRANSINT:[id number] Voice Confirmation ID: [id number] DOCUMENT ID: [id number] BERTHA CADENA MD at 1513 CC: [id number] DICTATION DATE: 05/17/18 1555 BAKERY HELPER: 05/17/18 1807 ADM IN [place] [id number] [place] [address]
--- NOTE | 2018-05-18 20:08 | NUR ---
RECEIVED IN HALLWAY. SITTING IN RECLINER OUSIDE OF NURSES STATION. CONFUSED. CALM AND COOPERATIVE WITH CARE AND ASSESSMENT. NO THOUGHTS OF SELF HARM VOICE THIS EVENING. REDIRECT AND REORIENT NEEDED. ATTEMPTS TO STAND WITHOUT ASSIST. CONTINUE PLAN OF CARE
[2018-05-18 23:57] VITALS: BP 144/68
--- NOTE | 2018-05-19 07:30 | NUR ---
REC'D PT IN HALLWAY IN RECLINING CHAIR. CALM AND COOPERATIVE WITH ASSESSMENT. NO AGGRESSION NOTED AT THIS TIME. REDIRECT AND REORIENT NEEDED. PRESCRIBED MEDS PROVIDED. MED COMPLIANT. FALL PRECAUTIONS IN PLACE. WILL COTINUE TO MONITOR Q 15 MINUTES FOR SAFETY. WI CPOC.
[2018-05-19 08:00] VITALS: BP 138/62
--- NOTE | 2018-05-19 15:00 | PN ---
PATIENT:ELVIRA LEIGH MEDICAL RECORD: [id number] LOCATION:[facility] ADMISSION DATE: 04/26/18 PROGRESS NOTE DATE OF SERVICE: 05/18/2018 SUBJECTIVE: The patient's case was discussed with staff. He has no new complaint. OBJECTIVE: The patient was significantly agitated last night and did require p.r.n. Ativan to calm him. He is calmer today. He has not been disruptive today in any significant way. I have reviewed his medications and I am going to increase the dose of his Namenda. TRANSINT:[id number] Voice Confirmation ID: [id number] DOCUMENT ID: [id number] BERTHA CADENA MD at 1500 CC: [id number] DICTATION DATE: 05/18/18 1621 SENIOR QUALITY ENGINEER: 05/18/18 1852 ADM IN [place] [id number] [place] [address]
--- NOTE | 2018-05-19 15:08 | NUR ---
reported to pt's family that the pt was given a PRN dose of Ativan and Haldol on previous operations supervisor 2nd shift due to pt having increased anxiety and staff unable to redirct after multiple attempts. dr. nj notified and gave order to give the PRN medication. reviewed pt's behavior today and reviewed discharged plans with family. verbalized understanding.
--- NOTE | 2018-05-19 21:59 | NUR ---
PATIENT AGITATED, CONFUSED, YELLING, SWINGING LEGS BETWEEN SIDERAILS. GIVEN HALDOL 2MG IM AND ATIVAN 0.5MG IM. WILL MONITOR FOR EFFECTIVENESS.
[2018-05-19 23:37] VITALS: BP 138/60
--- NOTE | 2018-05-20 03:53 | NUR ---
B) IRRITABLE, CURSING AT STAFF DURING CARE, BEHAVIOR ESCALATED AFTER RECEIVING HS MEDICATIONS. TALKING OF DYING, EXTREMELY DEPRESSED. STATES HE WENT TO A YESTERDAY AND THAT HIS . STAFF WAS CALLED OUT OF ROOM BY COLLEAGUE, APOLOGIZED TO PATIENT AND TOLD HIM I WOULD BE RIGHT BACK. PATIENT REPLIED "I WILL PROBABLY BE WHEN YOU GET BACK" LEFT HAND REMAINS SWOLLEN, BUT PER STAFF WHO HAVE SEEN PATIENT OVER PAST FEW DAYS, SWELLING HAS GONE DOWN. I) MEDICATE PER ORDERS, ENCOURAGE EXPRESSION OF FEELINGS, ASSESS FOR THOUGHTS OF SELF HARM, REDIRECT BEHAVIOR NEEDED, MAINTAIN SAFETY ON UNIT. R) AGITATED EPISODE, MEDICATED WITH GOOD EFFECT. CONFUSED. P) cONTINUE TO MONITOR PER PLAN OF CARE.
[2018-05-20 07:00] VITALS: BP 142/82
--- NOTE | 2018-05-20 15:55 | PN ---
PATIENT:ELVIRA LEIGH MEDICAL RECORD: [id number] LOCATION:[facility] ADMISSION DATE: 04/26/18 PROGRESS NOTE DATE OF SERVICE: 05/19/2018 SUBJECTIVE: The patient's case was discussed with staff. He has no new complaint. OBJECTIVE: The patient was significantly agitated last night and did require some p.r.n. Haldol and Ativan. He has no recollection of this. His agitation was apparently related to some anxiety that was precipitated by confusion. Based on this, I am going to give him a low dose of Klonopin to assist with his underlying anxiety. He will be monitored for clinical changes associated with its use. His long-term prognosis is guarded. TRANSINT:[id number] Voice Confirmation ID: [id number] DOCUMENT ID: [id number] BERTHA CADENA MD at 1555 CC: [id number] DICTATION DATE: 05/19/18 1512 CLERK CARRIER: 05/19/18 1727 ADM IN [place] [id number] [place] [id number]
[2018-05-20 19:31] VITALS: BP 118/64
--- NOTE | 2018-05-20 22:50 | NUR ---
B) DISPLAYS RESTLESS IMPATIENT BEHAVIORS BUT NOT AGITATED LAST EVENING. NO PHYSICAL AGGRESSION DISPLAYED, IRRITABLE AND SARCASTIC BUT WAS ABLE TO CALM DOWN ON HIS OWN AFTER RECEIVING HIS ROUTINE HS MEDICATIONS. NO PRN MEDICATIONS REQUIRED OF YET THIS SHIFT. RESTING QUIETLY IN BED AT THIS TIME. I) MEDICATE PER ORDERS, REORIENT AND REDIRECT NEEDED. R) COMPLIANT WITH MEDICATIONS, ORIENTED TO PERSON ONLY, SAD, DEPRESSED, ANXIOUS BUT NO AGGRESSION. P) MONITOR PER PLAN OF CARE.
[2018-05-21 10:05] VITALS: BP 162/70
--- NOTE | 2018-05-21 13:00 | NUR ---
The patient is lethargic today, he did not eat his breakfast and very little lunch. Held his am meds as he was too sleepy to swallow them without choking. He has not been aggressive, he has not received any prn's. He is a two person assist with transfers and toileting. Continue POC.
--- NOTE | 2018-05-21 16:27 | PN ---
PATIENT:ELVIRA LEIGH MEDICAL RECORD: [id number] LOCATION:[facility] ADMISSION DATE: 04/26/18 PROGRESS NOTE DATE OF SERVICE: 05/20/2018 SUBJECTIVE: The patient's case was discussed with staff. He has no new complaint. OBJECTIVE: The patient denies intent to harm himself or others. He does tolerate his medicines well. His long-term prognosis is guarded. TRANSINT:[id number] Voice Confirmation ID: [id number] DOCUMENT ID: [id number] BERTHA CADENA MD at 1627 CC: [id number] DICTATION DATE: 05/20/18 1622 DEWATERING FILTERING SUPERVISOR: 05/20/18 2203 ADM IN [place] [address] [place] [address]
[2018-05-21 20:14] VITALS: BP 130/60
--- NOTE | 2018-05-21 23:11 | NUR ---
PATIENT IS CONFUSED, EASILY REDIRECTED, DOES NOT COMPREHEND ANY CONVERSATION, COMPLIANT WIH MEDS, NO SIDE EFFECTS NOTED. WILL FOLLOW POC
[2018-05-22 08:00] VITALS: BP 154/88
--- NOTE | 2018-05-22 11:47 | PN ---
PATIENT:ELVIRA LEIGH MEDICAL RECORD: [id number] LOCATION:[facility] ADMISSION DATE: 04/26/18 PROGRESS NOTE DATE OF SERVICE: 05/21/2018 SUBJECTIVE: The patient's case was discussed with staff. He has no new complaint. OBJECTIVE: The patient is oriented only to person. He seems significantly calmer since the addition of the Klonopin a day and a half ago. He did not require p.r.n. medication yesterday. ASSESSMENT: No change in diagnoses. PLAN: The patient will be maintained on current medications, which I have reviewed and hopefully he can be transitioned out of the hospital soon if this level of improvement continues. TRANSINT:[id number] Voice Confirmation ID: [id number] DOCUMENT ID: [id number] BERTHA ACDENA MD at 1147 CC: [id number] DICTATION DATE: 05/21/18 1714 BSW: 05/22/18 0032 ADM IN [place] [id number] [place] [id number]
--- NOTE | 2018-05-22 13:10 | NUR ---
The patient is sleepy for a lot of the morning. He is talkative when he awakens, but then he goes back to sleep. He is pleasant. He did awaken at one time and ask for a cup of coffee and his MHT did go and get him a cup. He asks for shoes frequently even when it is explained that his feet are too swollen to wear them. Provide prescribed meds crushed today. He is compliant with meds Continue POC.
[2018-05-22 21:54] VITALS: BP 162/90
--- NOTE | 2018-05-22 23:06 | NUR ---
PATIENT IS VERY CONFUSED. COMPLIANT WITH MEDS. PATIENT HOLLERS OUT "GIDLARDO" NO ADVERSE REACTION NOTED TO MEDS. WILL FOLLOW POC
--- NOTE | 2018-05-23 07:30 | NUR ---
PT IS ALERT AND ORIENTED TO SELF ONLY. PT IS CALM AND COOPERATIVE WITH ASSESSMENT. NO AGGRESION NOTED. PRESCRIBED MEDS PROVIDED. MED COMPLIANT. WILL CONTINUE TO MONITOR Q 15 MINUTES FOR SAFETY. WILL CPOC.
[2018-05-23 09:00] VITALS: BP 148/73
[2018-05-23 11:20] LABS: HEMATOCRIT 40.6 % (42.0-54.0); HEMOGLOBIN 13.3 g/dL (13.5-17.5); IMMATURE GRANULOCYTES 0.4 % (0-5); LYMPHOCYTES 16.5 % (15-50); MCH 32.3 pg (26.0-34.0); MCHC 32.8 g/dL (31.0-37.0); MCV 98.5 fL (80.0-100.0); MEAN PLATELET VOLUME 12.3 fL (7.4-10.4); MONOCYTES 11.5 % (2-11); NEUTROPHILS 69.6 % (40-80); PLATELET COUNT 192 10x3/uL (130-400); RBC 4.12 10x6/uL (4.20-6.10); RDW 14.8 % (11.5-14.5); WBC 7.1 10x3/uL (4.8-10.8)
[2018-05-23 11:29] LABS: ALBUMIN 3.6 g/dL (3.4-5.0); ALKALINE PHOSPHATASE 135 U/L (46-116); ALT (SGPT) 21 U/L (10-68); BILIRUBIN - TOTAL 0.76 mg/dL (0.2-1.3); CALC OSMOLALITY 282 mosm/kg (275-300); CALCIUM 8.8 mg/dL (8.5-10.1); CARBON DIOXIDE 29.6 mmol/L (21.0-32.0); CHLORIDE - SERUM 104 mmol/L (98-107); GLUCOSE 88 mg/dL (74-106); POTASSIUM - SERUM 3.3 mmol/L (3.5-5.1); PROTEIN - SERUM 7.3 g/dL (6.4-8.2); SODIUM 142 mmol/L (136-145); UREA NITROGEN 16 mg/dL (7-18); eGFR NON AFRICAN AMERICAN 75 mL/min (90-120)
--- NOTE | 2018-05-23 12:04 | PN ---
PATIENT:ELVIRA LEIGH MEDICAL RECORD: [id number] LOCATION:[facility]bal[facility] ADMISSION DATE: 04/26/18 PROGRESS NOTE DATE OF SERVICE: 05/22/2018 SUBJECTIVE: The patient's case was discussed with staff. He has no new complaint. OBJECTIVE: The patient denies intent to harm himself or others. He does tolerate his medicines well. ASSESSMENT: No change in diagnoses. PLAN: Brief supportive and educational interventions were made. Long-term prognosis is guarded. TRANSINT:[id number] Voice Confirmation ID: [id number] DOCUMENT ID: [id number] BERTHA CADENA MD at 1204 CC: [id number] DICTATION DATE: 05/22/18 1204 TOBACCO PREVENTION HEALTH EDUCATOR: 05/22/18 1343 ADM IN [place] [id number] [place] [id number]
[2018-05-23] MEDS ORDERED: PERPHENAZINE2 MG PO (12:30)
[2018-05-23] MEDS ORDERED: NAMENDA5 MG PO (12:30)
[2018-05-23] MEDS ORDERED: VITAMIN D5000 UNIT PO (12:31)
[2018-05-23] MEDS ORDERED: DESERYL50 M2 PO (12:31)
[2018-05-23] MEDS ORDERED: MEGACE40 MG PO (12:31)
[2018-05-23] MEDS ORDERED: PEPCID PO (12:31)
[2018-05-23] MEDS ORDERED: KLONOPIN0.5 MG PO (12:31)
[2018-05-23] MEDS ORDERED: FLORAJEN3 CAPS460 MG PO (12:31)
[2018-05-23 22:15] VITALS: BP 129/72
--- NOTE | 2018-05-24 07:30 | NUR ---
REC'D PT IN THE HALLWAY IN RECLINING CHAIR. ALERT TO SELF ONLY. CALM AND COOPERATIVE WITH ASSESSMENT. NO AGGRESSION NOTED. PRESCRIBED MEDS PROVIDED. MED COMPLIANT. FALL PRECAUTIONS IN PLACE. WILL CONTINUE TO MONITOR Q 15 MINUTES FOR SAFETY. WILL CPOC.
[2018-05-24 08:00] VITALS: BP 156/77
--- NOTE | 2018-05-24 14:00 | NUR ---
REPORT CALLED TO [facility]. PAPERWORK FAXED AND COPY WILL BE SENT WITH PT.
--- NOTE | 2018-05-24 15:30 | NUR ---
PT DISCHARGED TO [facility]. NO S/SX OF DISTRESS NOTED. PAPERWORK FAXED AND COPY SENT WITH PT.
--- NOTE | 2018-05-24 17:39 | PN ---
PATIENT:ELVIRA LEIGH MEDICAL RECORD: [id number] LOCATION:NELY Guardado ADMISSION DATE: 04/26/18 PROGRESS NOTE DATE OF SERVICE: 05/23/2018 SUBJECTIVE: The patient's case was discussed with staff. He has no new complaint. OBJECTIVE: The patient denies intent to harm himself or others. He generally tolerates his medicines well. ASSESSMENT: No change in diagnoses. PLAN: Current medicines have been reviewed and will be maintained. Long-term prognosis is guarded. I do anticipate he can be transitioned out of the hospital tomorrow if this level of improvement continues. TRANSINT:[id number] Voice Confirmation ID: [id number] DOCUMENT ID: [id number] BERTHA CADENA MD at 1739 CC: [id number] DICTATION DATE: 05/23/18 1230 ASSEMBLER MECHANICAL ORDNANCE: 05/23/18 1735 DIS IN [address]/24[address] [id number] [place] [address]
--- NOTE | 2018-05-25 10:32 | NUR ---
SW ATTEMPTED CONTACTING ON NEW NUMBER SISTER LEFT ON VM TODAY TO ALERT PT'S OF DISCHARGE YESTERDAY. SW WAS UNABLE TO LEAVE VM. SW CALLED FIRST NUMBER LEFT MULTIPLE TIMES YESTERDAY AND WAS UNABLE TO CONTACT .
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
== END 2018-05-24 15:50 | DRG 57 ==
LOC: D.PSYCH 18:06
PROVIDERS: Family Medicine; ADMIT Psychiatry & Neurology Psychiatry
DX: G30.1 Alzheimer's disease with late onset (principal); F02.81 Dementia in other diseases classified elsewhere, unspecified severity, with behavioral disturbance; N39.0 Urinary tract infection, site not specified; I25.10 Atherosclerotic heart disease of native coronary artery without angina pectoris; Z95.5 Presence of coronary angioplasty implant and graft; E11.51 Type 2 diabetes mellitus with diabetic peripheral angiopathy without gangrene; K59.00 Constipation, unspecified; E78.5 Hyperlipidemia, unspecified; M19.90 Unspecified osteoarthritis, unspecified site; E55.9 Vitamin D deficiency, unspecified; B96.89 Other specified bacterial agents as the cause of diseases classified elsewhere; B96.20 Unspecified Escherichia coli [E. coli] as the cause of diseases classified elsewhere; I10 Essential (primary) hypertension; N40.0 Benign prostatic hyperplasia without lower urinary tract symptoms; Z86.73 Personal history of transient ischemic attack (TIA), and cerebral infarction without residual deficits; G47.419 Narcolepsy without cataplexy; R63.0 Anorexia; Z68.26 Body mass index [BMI] 26.0-26.9, adult

== ENCOUNTER 2018-05-27 22:55 | Inpatient (IN) | payer MEDICARE, OTHER ==
[~2018-05-27] VITALS: Ht 172.7 cm; Wt 68.9 kg
[~2018-05-27 22:55] MED LIST: BAYER CHEWABLE81 MG PO; COLACE100 MG PO; DESERYL50 M2 PO; FLORAJEN3 CAPS460 MG PO; KLONOPIN0.5 MG PO; MEGACE40 MG PO; NAMENDA5 MG PO; NORCO 7.5/325 T1 TA1 PO; PEPCID PO; PERPHENAZINE2 MG PO; PLAVIX75 MG PO; PRINIVIL20 MG PO; PROSCAR5 MG PO; VITAMIN D5000 UNIT PO
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
[2018-05-28 00:10] VITALS: BP 167/78
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
[2018-05-28 07:08] VITALS: BMI 26.1
[2018-05-28 07:21] LABS: BASOPHILS 0.6 % (0-2); EOSINOPHILS 0.1 % (0-7); HEMATOCRIT 43.5 % (42.0-54.0); HEMOGLOBIN 14.4 g/dL (13.5-17.5); IMMATURE GRANULOCYTES 0.2 % (0-5); LYMPHOCYTES 6.4 % (15-50); MCH 32.2 pg (26.0-34.0); MCHC 33.1 g/dL (31.0-37.0); MCV 97.3 fL (80.0-100.0); MEAN PLATELET VOLUME 12.3 fL (7.4-10.4); MONOCYTES 7.8 % (2-11); NEUTROPHILS 84.9 % (40-80); PLATELET COUNT 174 10x3/uL (130-400); RBC 4.47 10x6/uL (4.20-6.10); RDW 15.2 % (11.5-14.5); WBC 10.1 10x3/uL (4.8-10.8)
[2018-05-28 07:43] LABS: ALBUMIN 3.6 g/dL (3.4-5.0); ALKALINE PHOSPHATASE 138 U/L (46-116); ALT (SGPT) 29 U/L (10-68); BILIRUBIN - TOTAL 0.99 mg/dL (0.2-1.3); CALC OSMOLALITY 293 mosm/kg (275-300); CALCIUM 9.6 mg/dL (8.5-10.1); CARBON DIOXIDE 26.8 mmol/L (21.0-32.0); CHLORIDE - SERUM 109 mmol/L (98-107); CHOL - HDL RATIO 3.6 ratio (2.3-4.9); CHOLESTEROL, TOTAL 175 mg/dL (0-200); CREATININE - SERUM 0.8 mg/dL (0.6-1.3); GLUCOSE 116 mg/dL (74-106); HDL CHOLESTEROL 49 mg/dL (32-96); LDL CHOLESTEROL 119 mg/dL (0-100); LDL-HDL RATIO 2.4 ratio (1.5-3.5); POTASSIUM - SERUM 3.2 mmol/L (3.5-5.1); PROTEIN - SERUM 7.5 g/dL (6.4-8.2); SODIUM 147 mmol/L (136-145); THYROID STIMULATING HORMONE 1.16 uIU/mL (0.36-3.74); TRIGLYCERIDE 37 mg/dL (30-200); UREA NITROGEN 15 mg/dL (7-18); eGFR NON AFRICAN AMERICAN > 90 mL/min (90-120)
[2018-05-28 08:00] VITALS: BP 124/75
--- NOTE | 2018-05-28 14:03 | NUR ---
B) The patient has slept all day. He has bruises on his bilateral arms, his mouth looks swollen. He did wake a little to eat a small amount. He just now woke up and offered him warm tea and a blanket, he drank all of the tea and accepted the blanket and now he is back to sleep. He is not trying to fight anyone at this time. I) Provide prescribed meds. R) The patient continues to sleep. P) Continue POC.
[2018-05-28 14:17] VITALS: Ht 172.7 cm; Wt 68.9 kg
[2018-05-28 20:54] VITALS: BP 93/55
[2018-05-29 07:28] LABS: RAPID PLASMA REAGIN Non Reactive (Non Reactive); VITAMIN D 25 HYDROXY 39.9 ng/mL (30.0-100.0)
[2018-05-29 09:17] VITALS: BP 135/79
--- NOTE | 2018-05-29 09:27 | NUR ---
B) The patient is sleepy, he woke up to take a few bites of breakfast and his morning medication. He is weak and not able to lift himself up from the gerichair. He has not been aggressive. I) Provide prescibed meds and redirect as needed. R) The patient is compliant with meds. P) Continue POC.
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
[2018-05-29 12:11] LABS: FOLATE (FOLIC ACID) - SERUM 14.2 ng/mL (>3.0)
[2018-05-29 20:00] VITALS: BP 169/88
--- NOTE | 2018-05-29 21:27 | NUR ---
PATIENT IS WEAK, FLAT AFFECT, GARBLED SPEECH, DOES NOT PARTICIPATE IN GROUP. MEDS ARE CRUSHED, NO ADVERSE REACTION NOTED TO MEDS. WILL FOLLOW POC
[2018-05-29 21:30] VITALS: BP 169/88
[2018-05-30 08:59] VITALS: BP 139/87
--- NOTE | 2018-05-30 13:00 | NUR ---
RECEIVED PATIENT IN DAYROOM WITH PEERS. HE HAS BEEN NAPPING OFF AND ON ALL DAY. HE REUSED TO EAT ANY BREAKFAST, BUT ATE SOME OF LUNCH WITH STAFF ASSIST. PROVIDED PRESCRIBED MEDICATIONS. COMPLIANT WITH TAKING MEDICATIONS CRUSHED IN APPLESAUCE. HE HAS NOT SHOWN ANY AGGRESSION TODAY. CONTINUE POC.
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
[2018-05-30 18:17] VITALS: BP 159/80
--- NOTE | 2018-05-30 18:51 | NUR ---
PATIENT IS QUIET, LETHARGIC, GARBLED SPEECH, COMPLIANT WITH MEDS, HAS TO BE FED, NOT ABLE TO MAKE NEEDS KNOW, NO ADVERSE REACTION TO MEDS. WILL FOLLOW POC
[2018-05-31 06:40] LABS: BASOPHILS 0.2 % (0-2); EOSINOPHILS 0 % (0-7); HEMATOCRIT 44.3 % (42.0-54.0); HEMOGLOBIN 14.5 g/dL (13.5-17.5); IMMATURE GRANULOCYTES 0.5 % (0-5); LYMPHOCYTES 6.3 % (15-50); MCH 32.2 pg (26.0-34.0); MCHC 32.7 g/dL (31.0-37.0); MCV 98.4 fL (80.0-100.0); MEAN PLATELET VOLUME 12.2 fL (7.4-10.4); MONOCYTES 10.8 % (2-11); NEUTROPHILS 82.2 % (40-80); PLATELET COUNT 177 10x3/uL (130-400); RDW 15.7 % (11.5-14.5); WBC 14.7 10x3/uL (4.8-10.8)
[2018-05-31 07:07] LABS: ALBUMIN 3.4 g/dL (3.4-5.0); ALKALINE PHOSPHATASE 120 U/L (46-116); ALT (SGPT) 27 U/L (10-68); BILIRUBIN - TOTAL 1.35 mg/dL (0.2-1.3); CALC OSMOLALITY 304 mosm/kg (275-300); CALCIUM 9.4 mg/dL (8.5-10.1); CARBON DIOXIDE 27.4 mmol/L (21.0-32.0); CHLORIDE - SERUM 113 mmol/L (98-107); GLUCOSE 129 mg/dL (74-106); POTASSIUM - SERUM 3.5 mmol/L (3.5-5.1); PROTEIN - SERUM 7.6 g/dL (6.4-8.2); SODIUM 151 mmol/L (136-145); UREA NITROGEN 22 mg/dL (7-18); eGFR NON AFRICAN AMERICAN 75 mL/min (90-120)
[2018-05-31 08:04] VITALS: BP 123/75
--- NOTE | 2018-05-31 11:18 | NUR ---
SW ATTEMPTED TO CONTACT PT'S TO DISCUSS TRANSITIONING TO ANOTHER FACILITY. SW COULDN'T LEAVE A MESSAGE.
--- NOTE | 2018-05-31 14:00 | NUR ---
IV STARTED IN LEFT HAND WITH #22 G ANGIOCATH X 3 ATTEMPTS PER Rylan PALOMARES RN. 1000 CC D51/2NS HUNG AT 125CC/HR.
--- NOTE | 2018-05-31 15:00 | NUR ---
TO ROOM FOR CHEST X-RAY IN BED.
--- NOTE | 2018-05-31 15:30 | NUR ---
IN AN OUT CATHERIZATION DONE FOR UA AND CULTURE PER JELANI Conroy RN. TOTAL OF 200CC WALKER COLOR URINE OBTAINED.
--- NOTE | 2018-05-31 16:20 | PN ---
PATIENT:ELVIRA LEIGH MEDICAL RECORD: [id number] LOCATION:NELY IqbalManuel ADMISSION DATE: 05/27/18 PROGRESS NOTE DATE OF SERVICE: 05/30/2018 SUBJECTIVE: The patient's case was discussed with staff. He has no new complaint. OBJECTIVE: The patient denies intent to harm himself or others. Generally tolerates his medicines well. Eye contact is fair. ASSESSMENT: No change in diagnoses. PLAN: Supportive and educational interventions were made. The patient's long-term prognosis is guarded. TRANSINT:[id number] Voice Confirmation ID: [id number] DOCUMENT ID: [id number] BERTHA CADENA MD at 1620 CC: [id number] DICTATION DATE: 05/30/18 1405 OIL WELL SERVICE OPERATOR HELPER: 05/30/18 1611 ADM IN [id number] [place] [address]
[2018-05-31 16:25] LABS: APPEARANCE CLEAR (CLEAR); COLOR DK YELLOW (YELLOW)
[2018-05-31 16:26] LABS: BILIRUBIN NEGATIVE (NEGATIVE); GLUCOSE NEGATIVE (NEGATIVE); KETONE NEGATIVE (NEGATIVE); NITRITE NEGATIVE (NEGATIVE); PROTEIN TRACE mg/dL (NEGATIVE); UROBILINOGEN NORMAL (NORMAL)
[2018-05-31 20:40] VITALS: BP 119/85
--- NOTE | 2018-06-01 00:30 | NUR ---
RECEIVED IN PATIENT ROOM. RESTING IN BED WITH EYES OPEN. CALM AND COOPERATIVE WITH CARE AND ASSESSMENT. NO SIGSN OF AGGRESSION. REDIRECT AND REORIENT NEEDED. RESTING IN BED WITH EYS CLOSED AT THIS TIME. CONTINUE PLAN OF CARE.
[2018-06-01 07:43] LABS: ALBUMIN 2.8 g/dL (3.4-5.0); ANION GAP 11.7 mmol/L (8-16); BILIRUBIN - TOTAL 0.78 mg/dL (0.2-1.3); CALCIUM 8.9 mg/dL (8.5-10.1); CARBON DIOXIDE 31.7 mmol/L (21.0-32.0); CREATININE - SERUM 1.1 mg/dL (0.6-1.3); POTASSIUM - SERUM 3.4 mmol/L (3.5-5.1); PROTEIN - SERUM 6.7 g/dL (6.4-8.2)
--- NOTE | 2018-06-01 07:44 | NUR ---
SW SPOKE TO PT'S LAURO TO DISCUSS PT'S DISCHARGE PLANNING NEEDS. SW DISCUSSED DISEASE PROGRESSION AND PT BEING IN THE SEVERE STAGES OF DEMENTIA. SW ALSO HAD TO GO OVER AGAIN THAT [facility] WOULD NOT ACCEPT PT BACK. LAURO STATED THEY DID NOT CALL AND TELL HER THIS. HOWEVER, SHE DOESN'T RECALL OUR LAST CONTACT EITHER. LIV DISCUSSED HOSPICE CONSULT AND LAURO AGREED TO HAVE ONE DONE. SHE STATED SHE DIDN'T HAVE A PREFERENCE TO WHICH HOSPICE. SW ATTEMPTED TO GET HER SISTER'S NUMBER DUE TO PT'S 'S CONFUSION BUT SHE WAS UNABLE TO GIVE NUMBER TO ME. SW ASKED IF SHE WOULD HAVE HER SISTER CALL UNIT. LAURO STATED SHE WOULD DO THAT BECAUSE SHE IS SO UPSET SHE NEEDS ANOTHER PERSON HELPING HER. LATE ENTRY FROM 05/31
[2018-06-01 07:45] LABS: BASOPHILS 0.3 % (0-2); EOSINOPHILS 0.1 % (0-7); HEMATOCRIT 39.7 % (42.0-54.0); HEMOGLOBIN 12.9 g/dL (13.5-17.5); IMMATURE GRANULOCYTES 0.8 % (0-5); LYMPHOCYTES 6.6 % (15-50); MCHC 32.5 g/dL (31.0-37.0); MCV 98.5 fL (80.0-100.0); MEAN PLATELET VOLUME 12.7 fL (7.4-10.4); MONOCYTES 9.2 % (2-11); PLATELET COUNT 171 10x3/uL (130-400); RBC 4.03 10x6/uL (4.20-6.10); RDW 15.8 % (11.5-14.5); WBC 14.6 10x3/uL (4.8-10.8)
[2018-06-01 08:00] VITALS: BP 124/76
--- NOTE | 2018-06-01 09:30 | NUR ---
PATIENT IS WEAK, LETHARGIC, NAPPING ALOTS, GARBLED SPEECH. CALM AND COOPERATIVE WITH CARE AND ASSESSMENT. AROUSES EASILY AND TAKES MEDICATIONS CRUSHED IN APPLESAUCE. PATIENT ATE WHOLE APPLESAUCE CUP, IV INFUSING IN LEFT HAND WITH D51/2NS @ 125CC/HR. WILL CONTINUE PLAN OF CARE.
--- NOTE | 2018-06-01 09:56 | NUR ---
LIV SPOKE WITH PT'S MIRACLE WITH PERMISSION FROM PT'S LAURO. LIV EXPLAINED THE NEXT STEPS IN DISCHRAGE PLANNING. PT'S CONDITION AND REFERRAL TO HOSPICE CARE. LIV ALSO EXPLAINED THE [facility] WOULD NOT ACCEPT PT BACK AND HE WILL NEED TO GO TO A BEHAVIORAL [facility] DUE TO HIS UNPREDICATABLE AGGRESSION. LORRAINE VOICED UNDERSTANDING OF THE CONVERSATION.
--- NOTE | 2018-06-01 10:24 | NUR ---
Nutrition Follow Up: Chart reviewed Diet: Regular [facility] Soft PO Intake: 12% meal avg No BM since admit Wt stable Labs reviewed - Na elevated, BUN elevated Meds noted including Megace, D5 1/2 NS @ 125 ml/hr providing 510 kcal/d Rec continue regular diet with HARD METALS ENGRAVER HAND recs for consistencies. Will order Ensure TID and will honor food preferences. Rec continue Megace. RD following.
--- NOTE | 2018-06-01 15:55 | PN ---
PATIENT:ELVIRA LEIGH MEDICAL RECORD: [id number] LOCATION:NELY Iqbal112 ADMISSION DATE: 05/27/18 PROGRESS NOTE DATE OF SERVICE: 05/31/2018 SUBJECTIVE: The patient's case was discussed with staff. He has no new complaint. OBJECTIVE: The patient is quite confused with limited insight about his situation. He generally tolerates his medicines well. He has an elevated white count, but no fever. Internal medicine is looking at this, I know a chest x-ray and urinalysis, and I think some blood cultures have also been ordered. At this point, obviously, there is something going on with him medical. There was not anything, he is not showing any aggressive behaviors currently. I am going to watch him on current medicines today and anticipate that hopefully his medical condition will improve and that soon he can either be transferred to the medical floor for ongoing treatment or to a half-way for skilled nursing care. TRANSINT:[id number] Voice Confirmation ID: [id number] DOCUMENT ID: [id number] BERTHA CADENA MD at 1555 CC: [id number] DICTATION DATE: 05/31/18 1647 FILM TECHNICIAN: 05/31/18 1750 ADM IN [id number] [place] [address]
[2018-06-01 19:34] VITALS: BP 143/93
--- NOTE | 2018-06-02 04:49 | NUR ---
RECEIVED IN DAYROOM. RESTING IN RECLINER WITH EYES CLOSED. RESPONDS TO VOICE. CALM AND COOPERATIVE WITH CARE AND ASSESSMENT. NO SIGNS OF AGGRESSION. REDIRECT AND REORIENT NEEDED. RESTING IN BED WITH EYES CLOSED AT THIS TIME. CONTINUE PLAN OF CARE.
--- NOTE | 2018-06-02 07:30 | NUR ---
REC'D PT IN HALLWAY SITTING IN W/C. ALERT TO SELF. CALM AND COOPERATIVE WITH ASSESSMENT. PRESCRIBED MEDS PROVIDED. MED COMPLIANT. REDIRECT AND REORIENT NEEDED. FALL PRECAUTIONS IN PLACE. WILL CONTINUE TO MONITOR Q 15 MINUTES FOR SAFETY. WILL CPOC.
[2018-06-02 07:32] LABS: CALCIUM 8.3 mg/dL (8.5-10.1); CARBON DIOXIDE 28.9 mmol/L (21.0-32.0); CHLORIDE - SERUM 110 mmol/L (98-107); POTASSIUM - SERUM 3.7 mmol/L (3.5-5.1); SODIUM 148 mmol/L (136-145)
[2018-06-02 07:39] LABS: CALC OSMOLALITY 305 mosm/kg (275-300); CREATININE - SERUM 0.8 mg/dL (0.6-1.3); GLUCOSE 228 mg/dL (74-106); UREA NITROGEN 27 mg/dL (7-18); eGFR NON AFRICAN AMERICAN > 90 mL/min (90-120)
[2018-06-02 08:00] VITALS: BP 156/66
[2018-06-02 10:03] LABS: BASOPHILS 0.2 % (0-2); EOSINOPHILS 0.4 % (0-7); HEMATOCRIT 37.4 % (42.0-54.0); HEMOGLOBIN 12.1 g/dL (13.5-17.5); IMMATURE GRANULOCYTES 0.7 % (0-5); LYMPHOCYTES 7.4 % (15-50); MCHC 32.4 g/dL (31.0-37.0); MCV 98.9 fL (80.0-100.0); MEAN PLATELET VOLUME 13.1 fL (7.4-10.4); MONOCYTES 8.9 % (2-11); NEUTROPHILS 82.4 % (40-80); PLATELET COUNT 180 10x3/uL (130-400); RBC 3.78 10x6/uL (4.20-6.10); RDW 15.8 % (11.5-14.5); WBC 12.4 10x3/uL (4.8-10.8)
--- NOTE | 2018-06-02 12:06 | PN ---
PATIENT:ELVIRA LEIGH MEDICAL RECORD: [id number] LOCATION:NELY IqbalManuel ADMISSION DATE: 05/27/18 PROGRESS NOTE DATE OF SERVICE: 06/01/2018 SUBJECTIVE: The patient's case was discussed with staff. He has no new complaint. OBJECTIVE: The patient is in good behavioral control with limited insight about his condition. He does tolerate his medicines well. Eye contact is fair. ASSESSMENT: No change in diagnoses. PLAN: Current medicines and therapies have been reviewed and will be maintained. Long-term prognosis is guarded. He is still medically compromised in a way that I am unsure about. His chest x-ray was clear. He still has an elevated white count. He is receiving IV hydration and I will leave management of his nonpsychiatric issues to the primary care physician. At this point, his condition is fairly grave, both because he is ill medically and he still is not eating or drinking adequately. TRANSINT:[id number] Voice Confirmation ID: [id number] DOCUMENT ID: [id number] BERTHA CADENA MD at 1206 CC: [id number] DICTATION DATE: 06/01/18 1619 AUTO HEATER MECHANIC: 06/01/18 1933 ADM IN [facility] [address] [id number]
--- NOTE | 2018-06-02 16:30 | NUR ---
THIS NURSE, DATA DESIGNER AND MHT HAS FAMLIY MEETING TO DISCUSS D/C AND MEDICATIONS. ALL PAPERWORK REVIEWED AND COPY SENT WITH PT. PT. LEFT IN STABLE CONDITION. NO S/SX OF DISTRESS NOTED. PT LEFT WITH SON HAKAN PELAYO VIA W/C.
[2018-06-02 19:24] VITALS: BP 158/98
--- NOTE | 2018-06-02 23:50 | NUR ---
B) Patient is alert and oriented to self, calm and cooperative with care, follows instructions, I) Administered scheduled medications as ordered, monitored for safety R) Mediation compliant, sleeping quietly P) Continue plan of care.
[2018-06-03 09:44] VITALS: BP 133/80
--- NOTE | 2018-06-03 15:48 | PN ---
PATIENT:ELVIRA LEIGH MEDICAL RECORD: [id number] LOCATION:NELY IqbalManuel ADMISSION DATE: 05/27/18 PROGRESS NOTE DATE OF SERVICE: 06/02/2018 SUBJECTIVE: The patient's case was discussed with staff. He has no new complaint. OBJECTIVE: The patient continues to be minimally interactive. He is severely impaired cognitively. His oral intake is almost nothing. He is receiving IV hydration and hospice is going to evaluate him. ASSESSMENT: No change in diagnoses. PLAN: The patient's prognosis is unfortunately extremely poor. Current medicines will be maintained. If he does not improve, he will unfortunately need to be referred to hospice for comfort care. TRANSINT:[id number] Voice Confirmation ID: [id number] DOCUMENT ID: [id number] BERTHA CADENA MD at 1548 CC: [id number] DICTATION DATE: 06/02/18 1850 HAND PACKAGER: 06/02/18 2102 ADM IN [facility] [address] [place] [address]
[2018-06-03 20:00] VITALS: BP 148/68
--- NOTE | 2018-06-04 04:46 | NUR ---
B) Patient is alert at times, responses when spoaken to, restless at times, I) Administered scheduled medications as ordered, monitored for safety and changes R) Mediation compliant, P) Continue plan of care.
[2018-06-04 05:42] VITALS: BP 170/93
[2018-06-04 10:19] LABS: HEMATOCRIT 41.7 % (42.0-54.0); HEMOGLOBIN 14.2 g/dL (13.5-17.5); LYMPHOCYTES 7.1 % (15-50); MCH 33.1 pg (26.0-34.0); MCHC 34.1 g/dL (31.0-37.0); MCV 97.2 fL (80.0-100.0); MEAN PLATELET VOLUME 13.2 fL (7.4-10.4); NEUTROPHILS 83.8 % (40-80); RBC 4.29 10x6/uL (4.20-6.10); RDW 16.1 % (11.5-14.5); WBC 12.6 10x3/uL (4.8-10.8)
[2018-06-04 10:20] LABS: PLATELET COUNT 121 10x3/uL (130-400)
[2018-06-04 10:22] LABS: CALC OSMOLALITY 292 mosm/kg (275-300); CALCIUM 8.6 mg/dL (8.5-10.1); CARBON DIOXIDE 23.6 mmol/L (21.0-32.0); CHLORIDE - SERUM 109 mmol/L (98-107); CREATININE - SERUM 0.8 mg/dL (0.6-1.3); POTASSIUM - SERUM 4.1 mmol/L (3.5-5.1); SODIUM 146 mmol/L (136-145); UREA NITROGEN 17 mg/dL (7-18); eGFR NON AFRICAN AMERICAN > 90 mL/min (90-120)
[2018-06-04 10:23] LABS: GLUCOSE 107 mg/dL (74-106)
--- NOTE | 2018-06-04 11:59 | NUR ---
B) The patient is sleepy this am, he opens his eyes then goes back to sleep. He did not eat breakfast and staff did try to give him ensure, but he fell asleep with the straw in his mouth so staff stopped with ensure, held his medications this am as he is too sleepy to swallow a pill. He does not have an IV at this time. Hospice has accepted him. I) Provide prescribed meds and encourage the patient to eat and drink. R) Held the patient's meds today. P) Continue POC.
--- NOTE | 2018-06-04 14:25 | NUR ---
Assisted the patient to his bed. He has bowel right at his rectum, but he is unable to push it out. Did get some K-Y jelly and helped remove the BM. The stool is formed, not hard, but somewhat sticky. He did have a medium size. Appled vanessa butt paste to his buttocks. He does have reddened buttocks.
--- NOTE | 2018-06-04 15:16 | PN ---
PATIENT:ELVIRA LEIGH MEDICAL RECORD: [id number] LOCATION:NELY RasheedManuel ADMISSION DATE: 05/27/18 PROGRESS NOTE DATE OF SERVICE: 06/03/2018 SUBJECTIVE: The patient's case was discussed with staff. He has no new complaint. OBJECTIVE: The patient denies intent to harm himself or others. He is severely impaired cognitively and continues to not eat or drink adequately. ASSESSMENT: No change in diagnoses. PLAN: Efforts to encourage this patient to eat have been unsuccessful. He is accepted by [facility] and I fear that if he does not make a turnaround in the next day or so that I am just going to have to discharge him to that program and his prognosis will of course be exceedingly poor. Every effort is being made to get him to drink and eat without success. TRANSINT:[id number] Voice Confirmation ID: [id number] DOCUMENT ID: [id number] BETRHA CADENA MD at 1516 CC: [id number] DICTATION DATE: 06/03/18 1626 BISQUE KILN DRAWER: 06/03/18 2249 ADM IN [id number] [place] [id number]
[2018-06-04 19:59] VITALS: BP 156/79
--- NOTE | 2018-06-04 20:49 | NUR ---
PATIENT IS WEAK, CONFUSED, NOT ABLE TO MAKE NEEDS KNOW, HOLLERS OUT WORDS THAT I CAN'T UNDERSTAND. TAKES MED CRUSHED WITH APPLE SAUCE. NO ADVERSE REACTION NOTED. WILL FOLLOW POC.
[2018-06-05 08:00] VITALS: BP 189/88
--- NOTE | 2018-06-05 10:51 | NUR ---
B) The patient is sleepy, he arouses to his name, but then he goes back to sleep, held most of his meds as he does not want to wake up, gave him his liquid meds and lisinipril for his hypertension. He is resting easily. T has given him two ensure. Called Dr. Cooley to get a puree diet to see if he will eat that better. He did order it. I) Encourage the patient to take fluids every two hours and turn every every two hours in the clover chair. R) The patient is taking fluids well today. He has not shown any aggression today. P) Continue POC.
--- NOTE | 2018-06-05 12:11 | PN ---
PATIENT:ELVIRA LEIGH MEDICAL RECORD: [id number] LOCATION:NELY IqbalManuel ADMISSION DATE: 05/27/18 PROGRESS NOTE DATE OF SERVICE: 06/04/2018 SUBJECTIVE: The patient's case was discussed with staff. He has no new complaint. OBJECTIVE: The patient denies intent to harm himself or others. He is tolerating his medicines well. He is not eating very well. He has limited insight about his condition. ASSESSMENT: No change in diagnoses. PLAN: The patient has been accepted by hospice and will be transitioned out of the hospital to the [facility] with hospice care on Thursday. That assumes this level of improvement and behavior improvements continue through the weekend. TRANSINT:[id number] Voice Confirmation ID: [id number] DOCUMENT ID: [id number] BERTHA CADENA MD at 1211 CC: [id number] DICTATION DATE: 06/04/18 1553 CHEMICAL DETECTION EXPERT: 06/04/182004 ADM IN [facility] [address] [place] [address]
--- NOTE | 2018-06-05 16:44 | NUR ---
The patient's spouse and axjzbb-[id number] are here visiting and the is asking questions. She says "My sister called up here and someone told her he was dying." I said "He is on Hospice." She said so he can live a year, six months?" I said "I am unsure about the time." She then wanted to know "Where is he going from here?" The jdhner-me-xfp said "We were at [facility], he is going there." The said "Oh, yes, that is right." The patient is drinking juice, he has his eyes open, but he is not speaking with his spouse or bangor-qh-mht.
--- NOTE | 2018-06-05 19:35 | NUR ---
PATIENT IS ORIENTED TO SELF ONLY, HE IS WEAK, NOT ABLE TO MAKE NEEDS KNOWN, COMPLETLY DEPENDENT UPON STAFF FOR ADL'S, APPETITE IS GOOD, HOWEVER, COMPLIANT WITH MEDS, NO ADVERSE REACTION NOTED. WILL FOLLOW POC
[2018-06-05 21:39] VITALS: BP 117/79
--- NOTE | 2018-06-06 07:30 | NUR ---
REC'D PT IN HALLWAY IN RECLINING CHAIR. ALERT TO SELF ONLY. CALM AND COOPERATIVE WITH ASSESSMENT. REDIRECT AND REORIENT NEEDED. NO AGGRESSION NOTED.PRESCRIBED MEDS PROVIDED. MED COMPLIANT. FALL PRECAUTIONS IN PLACE. WILL CONTINUE TO MONITOR Q 15 MINUTES FOR SAFETY. WILL CPOC.
[2018-06-06 07:42] VITALS: BP 168/96
--- NOTE | 2018-06-06 11:54 | PN ---
PATIENT:ELVIRA LEIGH MEDICAL RECORD: [id number] LOCATION:NELY Iqbal112 ADMISSION DATE: 05/27/18 PROGRESS NOTE DATE OF SERVICE: 06/05/2018 SUBJECTIVE: The patient's case was discussed with staff. He has no new complaint. OBJECTIVE: The patient denies intent to harm himself or others. He is oriented only to person. He is eating a little bit better. I am not sure if that is related to some improvement in his condition or the almost extraordinary lengths to which the staff is going to feed him or encourage him to eat. He has not been aggressive. I do think he is slightly sedated. ASSESSMENT: No change in diagnoses. PLAN: I am going to discontinue the patient's trazodone since I do not think he requires this any longer for sleep consolidation. He will be monitored for clinical changes. Long-term prognosis is guarded. TRANSINT:[id number] Voice Confirmation ID: [id number] DOCUMENT ID: [id number] BERTHA CADENA MD at 1154 CC: [id number] DICTATION DATE: 06/05/18 1222 DIGITAL MEDIA DIRECTOR: 06/05/18 1326 ADM IN [place] [id number] [place] [address]
[2018-06-06] MEDS ORDERED: ONCOLOGY MOUTHWASH PO (12:00)
[2018-06-06] MEDS ORDERED: MEGACE ES625 MG/5 M PO (12:01)
[2018-06-06 21:25] VITALS: BP 119/89
--- NOTE | 2018-06-07 04:33 | NUR ---
PATIENT IS CALM AND CONFUSED, CAN NOT MAKE NEEDS KNOWN, COMPLIANT WITH MEDS, NO ADVERSE REACTION NOTED. WILL FOLLOW POC
[2018-06-07 08:11] VITALS: BP 158/83
--- NOTE | 2018-06-07 14:00 | NUR ---
PT DISCHARGED TO [facility]. PAPERWORK FAXED AND COPY SENT WITH ETHNOARCHAEOLOGIST AND PT. NO S/SX OF DISTRESS AT THIS TIME. [facility] NOTIFIED PER LIV.
--- NOTE | 2018-06-07 14:13 | NUR ---
SW CALLED TO ALERT OF PT DISCHARGING. NO ANSWER. LEFT VOICEMAIL. CALLED [facility] AND ALERTED THEM OF DISCHAGE TOO.
--- NOTE | 2018-06-07 14:59 | PN ---
PATIENT:ELVIRA LEIGH MEDICAL RECORD: [id number] LOCATION:[id number] ADMISSION DATE: 05/27/18 PROGRESS NOTE DATE OF SERVICE: 06/06/2018 SUBJECTIVE: The patient's case was discussed with staff. He has no new complaint. OBJECTIVE: The patient is in good behavioral control with poor insight about his condition. He does tolerate his medications well. Eye contact is fair. ASSESSMENT: No change in diagnoses. PLAN: Brief supportive and educational interventions were made. I anticipate the patient will be transitioned out of the hospital tomorrow. He will be followed on an outpatient basis by hospice at the half-way. TRANSINT:[id number] Voice Confirmation ID: [id number] DOCUMENT ID: [id number] BERTHA CADENA MD at 1459 CC: [id number] DICTATION DATE: 06/06/18 1155 WATER SAFETY TEACHER: 06/06/18 1232 ADM IN [address] [id number] [place] [address]
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
== END 2018-06-07 14:00 | DRG 57 ==
LOC: D.PSYCH 22:55
PROVIDERS: Family Medicine; ADMIT Psychiatry & Neurology Psychiatry
DX: G30.1 Alzheimer's disease with late onset (principal); F02.81 Dementia in other diseases classified elsewhere, unspecified severity, with behavioral disturbance; E87.0 Hyperosmolality and hypernatremia; I25.10 Atherosclerotic heart disease of native coronary artery without angina pectoris; I10 Essential (primary) hypertension; E78.5 Hyperlipidemia, unspecified; E11.9 Type 2 diabetes mellitus without complications; N40.0 Benign prostatic hyperplasia without lower urinary tract symptoms; M19.90 Unspecified osteoarthritis, unspecified site; Z86.73 Personal history of transient ischemic attack (TIA), and cerebral infarction without residual deficits; R26.9 Unspecified abnormalities of gait and mobility; G47.419 Narcolepsy without cataplexy; E55.9 Vitamin D deficiency, unspecified; E87.6 Hypokalemia; K12.1 Other forms of stomatitis; K59.00 Constipation, unspecified

== ENCOUNTER 2018-06-23 12:31 | Emergency (ER) | payer MEDICARE ==
[~2018-06-23] VITALS: Ht 172.7 cm; Wt 75.0 kg
[~2018-06-23 12:31] MED LIST changes: +MEGACE ES625 MG/5 M PO; +ONCOLOGY MOUTHWASH PO
[2018-06-23 12:32] VITALS: Ht 172.7 cm; Wt 75.0 kg
[2018-06-23 15:55] VITALS: BP 140/82
== END 2018-06-23 15:56 | disposition home or self-care (01) ==
LOC: D.ER 12:31
DX: R04.0 Epistaxis (principal); F03.90 Unspecified dementia, unspecified severity, without behavioral disturbance, psychotic disturbance, mood disturbance, and anxiety; E11.9 Type 2 diabetes mellitus without complications